=== PATIENT | female | born 1990 | race Native Hawaiian/Other Pacific Islander ===

== ENCOUNTER 2016-12-23 23:03 | Emergency (ER) | payer SELFPAY ==
[2016-12-23 23:18] VITALS: BP 110/55
[2016-12-24] MEDS ORDERED: NORCO 7.5/325 PO ONE (01:15)
--- NOTE | 2016-12-24 01:19 | Emergency Department Report ---
HPI - General Chief Complaint: Upper Respiratory Infection - HPI HPI: 26-year-old female comes in for complaint of pain across her chest. "Takes his lungs hurt". Nasal and chest congestion headache fever that started on Thursday and cough. Patient reports that she took Tylenol before she came to the emergency room she reports that she has a headache that feels like pressure she did take some [id number] medication for call as well as Carina. He has no past medical history currently takes no medications. She does admit having control nexplanon in her right inner arm. ED Past Medical Hx - Past Medical History Previous Medical History?: No - Surgical History Past Surgical History?: Yes Additional Surgical History: x2 - Social History Smoking Status: Never Smoker Substance Use Type: None - Medications Home Medications: Home Medications Medication Instructions Recorded Confirmed Last Taken Type Ibuprofen [Motrin] 800 mg PO Q8HR PRN #20 tablet 07/24/16 Unknown Rx Fluticasone [Flonase] 1 spray NS QDAY #1 bottle 12/24/16 Unknown Rx Loratadine/Pseudoephedrine 1 each PO BID #60 tab.er.12h 12/24/16 Unknown Rx [Allergy Relief D 12-Hour Tab] Olopatadine HCl [Pataday 0.2%] 1 drop OP QDAY #1 drops 12/24/16 Unknown Rx Promethazine /Codeine 10 ml PO Q6H PRN #120 ml 12/24/16 Unknown Rx [Phenergan/Codeine 6.25-10 mg/5 ml] ED Review of Systems ROS: Stated complaint: HEADACHE/CHEST CONGESTION/DIZZINESS Other details as noted in HPI Physical Exam - Physical Exam Vital Signs: Vital Signs 12/23/16 23:09 Temperature 98.1 F Pulse Rate 88 Respiratory 18 Rate Blood Pressure 110/55 O2 Sat by Pulse 98 Oximetry Physical Exam: GENERAL: Alert and oriented x3, no apparent distress, Normal Gait, atraumatic. HEAD: Head is normocephalic and a-traumatic. EYES: Extra ocular muscles are intact. Pupils are equal, round, and reactive to light and accommodation. Patient has swelling around both eyes EARS: symetrical, atraumatic, non tender, ear canal clear and moderate cerumen, tympanic membrance non inflamed. gross auditory nml bilaterally. NOSE: Nose symetrical, Nontender,Nares appeared normal. Turbinates are erythematous and edematous MOUTH:Mouth is well hydrated and without lesions. Tonsils nonerythematous or swollen, Uvula midline, Tongue not elevated. Mucous membranes are moist. Posterior pharynx clear, no exudate or lesions. Patent airways. NECK: Supple. Non edematous, No carotid bruits. No lymphadenopathy or thyromegaly. LUNGS: Symetrical with respiration, No wheezing, no rales or crackles, CTAB. HEART: S1, S2 present, regular rate and rhythm without murmur, no rubs, no gallops. NEUROLOGIC: No focal Deficit, Cranial nerves II through XII are grossly intact. No loss of sensation, No facial droop, PSYCHIATRIC: Mood is congruent with affect, denies suicidal or homicidal ideations. SKIN: Warm and dry, No lesions, No ulceration or induration present ED Course Vital Signs 12/23/16 23:09 Temperature 98.1 F Pulse Rate 88 Respiratory 18 Rate Blood Pressure 110/55 O2 Sat by Pulse 98 Oximetry - Reevaluation(s) Reevaluation #1: 12/24/16 06:24 Patient reports that she feels much better after having Sperry. ED Medical Decision Making - Radiology Data Radiology results: report reviewed, image reviewed FINAL REPORT EXAM: XR CHEST ROUTINE 2V HISTORY: chest pain with cough COMPARISON: None available. FINDINGS:: Frontal and lateral views of the chest obtained. Cardiac silhouette is within normal limits. No focal consolidation or effusion. No pneumothorax. Visualized bony thorax is grossly intact. IMPRESSION:: No acute findings. Transcribed By: LMA Dictated By: ELISA DEVI MD Electronically Authenticated By: ELISA DEVI MD Signed Date/Time: 12/24/16213 - Medical Decision Making Assessment and evaluated by this provider in fast track. With order chest x- ray we have given the patient a Sperry for cough and pain. X-ray reveal no acute findings. We will treat patient for acute upper respiratory infection and have her follow up with the primary care provider patient verbalizes understanding Critical care attestation.: If time is entered above; I have spent that time in minutes in the direct care of this critically ill patient, excluding procedure time. ED Disposition Clinical Impression: Seasonal allergies, Acute URI Disposition: DISCHARGED TO HOME OR SELFCARE Is pt being admited?: No Does the pt Need Aspirin: No Condition: Stable Instructions: Allergies (ED) Additional Instructions: These take medications as prescribed. Follow up with her primary care provider for further evaluation. Prescriptions: Fluticasone [Flonase] 1 spray NS QDAY #1 bottle Loratadine/Pseudoephedrine [Allergy Relief D 12-Hour Tab] 1 each PO BID #60 tab.er.12h Olopatadine HCl [Pataday 0.2%] 1 drop OP QDAY #1 drops Promethazine /Codeine [Phenergan/Codeine 6.25-10 mg/5 ml] 10 ml PO Q6H PRN #120 ml PRN Reason: cough Referrals: PRIMARY CARE, [Primary Care Provider] - 3-5 Days Forms: Accompanied Note, Work/School Release Form(ED)
--- NOTE | 2016-12-24 02:18 | XRay Report ---
FINAL REPORT EXAM: XR CHEST ROUTINE 2V HISTORY: chest pain with cough COMPARISON: None available. FINDINGS:: Frontal and lateral views of the chest obtained. Cardiac silhouette is within normal limits. No focal consolidation or effusion. No pneumothorax. Visualized bony thorax is grossly intact. IMPRESSION:: No acute findings.
== END 2016-12-24 03:16 | disposition home or self-care (01) ==
LOC: ED 23:03
DX: J30.2 Other seasonal allergic rhinitis (principal); J06.9 Acute upper respiratory infection, unspecified
CPT/HCPCS: 71020